=== PATIENT | female | born 1975 | race Two or more races ===

== ENCOUNTER → 2021-05-11 | Outpatient (CLI) | payer OTHER | END | disposition home or self-care (01) | LOC: PPH VACUNA 09:00 | PROVIDERS: ATTEND Emergency Medicine Pediatric Emergency Medicine | DX: Z23 Encounter for immunization (principal) ==

== ENCOUNTER 2022-11-30 14:57 | Outpatient (CLI) | payer OTHER | END 2022-11-30 15:08 | disposition home or self-care (01) | LOC: MAMO-SONO 14:57 | PROVIDERS: ATTEND Obstetrics & Gynecology | DX: N63.0 Unspecified lump in unspecified breast (principal); N64.4 Mastodynia ==

== ENCOUNTER 2023-07-11 14:14 | Outpatient (CLI) | payer OTHER | END 2023-07-11 14:30 | disposition home or self-care (01) | LOC: RAD 14:14 | PROVIDERS: ATTEND Physical Medicine & Rehabilitation | DX: M25.551 Pain in right hip (principal) ==

== ENCOUNTER 2023-08-28 07:17 | Outpatient (CLI) | payer OTHER | END 2023-08-28 07:46 | disposition home or self-care (01) | LOC: RAD 07:17 | PROVIDERS: ATTEND Physical Medicine & Rehabilitation | DX: M54.59 Other low back pain (principal) ==

== ENCOUNTER 2025-04-05 12:06 | Outpatient (CLI) | payer OTHER | END 2025-04-05 12:13 | disposition home or self-care (01) | LOC: MAMO-SONO 12:06 | PROVIDERS: ATTEND Obstetrics & Gynecology | DX: N60.21 Fibroadenosis of right breast (principal); N60.22 Fibroadenosis of left breast ==